=== PATIENT | female | born 1940 | race Caucasian/White ===

== ENCOUNTER → 2019-10-02 15:05 | Outpatient (CLI) | payer MEDICARE, SELFPAY ==
--- NOTE | 2019-10-02 15:09 | CT_ITS ---
STUDY: CTA NECK WITH CONTRAST REASON FOR EXAM: Female, 79 years old. Suspected carotid stenosis. RADIATION DOSAGE (If Supplied By Facility): CTDIvol = ( 15.21 ) mGy, DLP = ( 447.82 ) mGycm TECHNIQUE: CT angiography with multi-detector data acquisition was performed from the aortic arch to the skull base following intravenous administration of IV Isovue 370 100. MIP images were reconstructed from the axial data set. Post-processing of the angiographic images was performed, with multiplanar reformation and 3D reconstruction. Individualized dose optimization techniques were used for this CT. COMPARISON: None. FINDINGS: AORTIC ARCH: There is atherosclerotic calcific plaque formation of the aortic arch and great vessels arising from the aortic arch, without a hemodynamically significant stenosis. There is a normal origin of the brachiocephalic, left common carotid, and left subclavian arteries. RIGHT CAROTID ARTERIES: Normal right common carotid artery (CCA). There is moderate atherosclerotic plaque formation with moderate to severe narrowing of the right carotid bulb. There is extensive atherosclerotic plaque formation of the origin of the right internal carotid artery with an estimated stenosis of greater than 70%. Normal visualized cervical portion of the right internal carotid artery. Normal origin of the right external carotid artery (ECA). LEFT CAROTID ARTERIES: There is diffuse intimal thickening throughout the left common carotid artery. There is moderate atherosclerotic plaque formation with moderate to severe narrowing of the carotid bulb. There is moderate atherosclerotic plaque formation of the origin of the left internal carotid artery with an estimated stenosis of 50-69% stenosis. Normal visualized cervical portion of the left internal carotid artery. Normal origin of the left external carotid artery (ECA). VERTEBRAL ARTERIES: Normal bilateral vertebral arteries. CT/CTA Neck W/WO Contrast IMPRESSION: Intimal thickening along calcified plaque along the common carotid arteries and bulb region. Suggestion of high-grade stenosis involving the origin of the right internal carotid artery and moderate stenosis at the origin of the left internal carotid artery. Electronically Signed: Marsha Morales MD at 7:56 EST , Service support ,
[2019-10-02 15:20] LABS: CREATININE FINGERSTICK < 0.6 mg/dL (0.55-1.02)
== END ==
PROVIDERS: Family Provider Preventive Medicine Occupational Medicine; PCP Preventive Medicine Occupational Medicine; Referring Provider Surgery Vascular Surgery; Visit Provider Surgery Vascular Surgery
DX: I65.23 Occlusion and stenosis of bilateral carotid arteries (principal)
CPT/HCPCS: 70498; Q9967

== ENCOUNTER 2022-03-08 11:30 | Outpatient (RCR) | payer MEDICARE, SELFPAY ==
--- NOTE | 2022-03-05 09:12 | HP.PTEVAL_ITS ---
Patient's Visit Information ESTELA ROLDAN is a 82 year old F referred to Physical Therapy by Dr. Len Xiao DO with a diagnosis of vertigo. Date of Evaluation: 03/05/22 Physical Therapist: Jose Rios DPT, OCS, CSCS - Visit Plan Frequency: 1-2x /Week Duration: 2-4 Weeks Plan: 1-2x/week for 2-4 weeks as needed for positional treatments/vestibular therapy. - Subjective Last September started getting dizzy. Tried online exercises for positional and had a severe bout on Oct 13. Went to ER as she had a ROPER also with her vertigo and nausea. ER at [facility] did catscan which was clear adn had HTN and given meds and sent home. Since then vertigo has persisted. Exasperated if she lies flat but OK in a recliner. Gets spinning dizzyness and changes position quickly to limit severity, gets ROPER and nausea if gets too bad. Dentist reclined her and coming back up was dizzyfying and nauseating. Takes a couple hours to recover. Looking up can cause it. Feels pretty normal in between bouts but describes a consistent fogginess. Balance feels Ok except when she gets dizzy. No falls. Activities are normal outside of sleeping on back and avoiding reclining. Basic ADLs are good. Dizzyness is daily. - Objective Walks I into and out of PT. Transfers I. Cervical aROM WFL and painfree. UE aROM WFL. - L hallpike lindsey. + R hallpike lindsey for quick up torsional nystagmus 5 seconds and dizzy. Treated with Ariane and then much better HD. - Balance/Special Test Scores Functional Gait Assessment Score: 28 % Disability: 6.6700 Dizziness Score: 16 - Goals Goal 1:: Abolish dizzyness in bed Goal Time Frame: 2-4 Weeks Goal 2:: Pt feel 100% back to normal Goal Time Frame: 2-4 Weeks Goal 3:: DHI score less than 5 Goal Time Frame: 2-4 Weeks - Rehabilitation Potential Physical Therapy Diagnosis: BPPV R post canal Rehabilitation Potential: Good - Anticipated Interventions Patient/Client Instruction: Educate patient on: Condition, Plan of Care For the Purpose of:: To increase tolerance to activity/condition/position Comment: positional treatment and ex For the Purpose of:: To increase tolerance to activity/condition/position Thank you for the opportunity to evaluate your patient. For Medicare and Medicare HMO plans, please review the plan of care and approve it. It will need to be FAXED BACK to us at [phone] for Medicare purposes. For Medicare only, by signing this I certify the plan of care. Please let me know if there are questions or concerns regarding this plan of care. Physician Signature: Date:
--- NOTE | 2022-04-24 18:38 | HP.PT.NRP ---
ESTELA ROLDAN was seen in my office for initial evaluation on 03/05/22. The following Plan of Care was established for this patient: Initial Frequency: 1-2x /Week Initial Duration: 2-4 Weeks Patient/Client Instruction: Educate patient on: Condition, Plan of Care For the Purpose of:: To increase tolerance to activity/condition/position For the Purpose of:: To increase tolerance to activity/condition/position This patient was last seen in our office 03/08/22. Pertinent comments regarding their Physical therapy will appear below: pt seen two visits of positional treatments and was 80% better. She was to f/u a week later but did not schedule or attend. At this point, it has been over 6 weeks and I will discontinue due to nonattendance. At this point I will be discontinuing this patient from physical therapy. I would be happy to see this patient again in the future if found appropriate by the physician. Thank you! Jose Rios, DPT, OCS, CSCS Balance/Gait/Functional tests - Balance/Special Test Scores Functional Gait Assessment Score: 28 % Disability: 6.6700 Dizziness Score: 16
== END 2022-03-08 19:00 | disposition home or self-care (01) ==
LOC: PT 11:30
PROVIDERS: PCP Preventive Medicine Occupational Medicine; Referring Provider Preventive Medicine Occupational Medicine; Visit Provider Preventive Medicine Occupational Medicine
DX: H81.10 Benign paroxysmal vertigo, unspecified ear (principal)
CPT/HCPCS: 97161; 97530